=== PATIENT | female | born 1985 | race Caucasian/White ===

== ENCOUNTER 2021-10-08 20:21 | Emergency (ER) | payer BC ==
[~2021-10-08] VITALS: Ht 167.6 cm; Wt 104.5 kg
[2021-10-08 20:26] VITALS: TEMP 98.3
[2021-10-08] MEDS ORDERED: BACTRIM DS 8001 TAB PO (21:23)
[2021-10-08 21:30] VITALS: BP 148/97; PULSE 98
== END 2021-10-08 21:30 | disposition home or self-care (01) ==
LOC: COL.ER 20:21
DX: L02.411 Cutaneous abscess of right axilla (principal); F17.210 Nicotine dependence, cigarettes, uncomplicated; Z28.310 Unvaccinated for COVID-19